=== PATIENT | female | born 1950 | race Caucasian/White ===

== ENCOUNTER → 2019-08-05 | Emergency (ER) | payer OTHER ==
[~2019-08-05] VITALS: Ht 160 cm; Wt 95.3 kg
[~2019-08-05] MED LIST: ASPIRIN325 MG; CARDICEN; CARVEDILOL; FLEXERIL; INDOCIN; PLAVIX75 MG; SIMVASTATIN20 MG; [UNRECOGNIZED DRUG - OTHER]
== END | disposition home or self-care (01) ==
LOC: ER 14:21
DX: R07.89 Other chest pain (principal); I48.91 Unspecified atrial fibrillation